=== PATIENT | female | born 2000 | race Caucasian/White ===

== ENCOUNTER → 2021-03-05 09:44 | Outpatient (CLI) | payer OTHER, SELFPAY ==
[2021-03-05 22:59] LABS: Urine N gonorrhoeae NOT DETECTED
[2021-03-05 23:12] LABS: Urine Chlamydia NOT DETECTED
== END ==
PROVIDERS: PCP Nurse Practitioner Family; Visit Provider Physician Assistant
DX: N34.3 Urethral syndrome, unspecified (principal); N89.8 Other specified noninflammatory disorders of vagina; R30.0 Dysuria
CPT/HCPCS: 87086; 87210; 87491; 87591

== ENCOUNTER → 2021-04-18 08:54 | Outpatient (CLI) | payer OTHER, SELFPAY | PROVIDERS: PCP Nurse Practitioner Family; Visit Provider Nurse Practitioner Family | DX: R30.9 Painful micturition, unspecified (principal) | CPT/HCPCS: 87086 ==